=== PATIENT | female | born 1965 | race Caucasian/White ===

== ENCOUNTER 2017-12-19 11:19 | Emergency (ER) | payer MEDICARE ==
[~2017-12-19 11:19] MED LIST: AMOX/K CLAV875 M1 PO; COLACE100 MG PO; EFFEXOR XR75 MG PO; FLUOXETINE HCL10 MG PO; GABAPENTIN300 MG PO; GLIMEPIRIDE2 MG PO; LORTAB 10-325 M1 TAB PO; METFORMIN500 MG PO; MULTIVITAMIN PO; PERCOCET 10/31 COMBO PO
== END 2017-12-19 11:31 | disposition expired ==
LOC: ED 11:19
PROC: 5A12012 Performance of Cardiac Output, Single, Manual (ICD-10-PCS; principal; 2017-12-19)
DX: I46.9 Cardiac arrest, cause unspecified (principal); C34.90 Malignant neoplasm of unspecified part of unspecified bronchus or lung; C79.9 Secondary malignant neoplasm of unspecified site; F17.210 Nicotine dependence, cigarettes, uncomplicated